=== PATIENT | male | born 1980 | race African-American/Black ===

== ENCOUNTER 2017-05-03 13:35 | Emergency (ER) | payer MEDICAID ==
[2017-05-03 15:25] LABS: CALCIUM 8.8 mg/dL (8.5-10.1); CARBON DIOXIDE 27.6 mmol/L (21-32); CHLORIDE SERUM 102 mmol/L (98-107); CREATININE SERUM 0.8 mg/dL (0.7-1.3); GFR1 > 60 mL/min; GLUCOSE SERUM 110 mg/dL (74-106); POTASSIUM SERUM 4.3 mmol/L (3.5-5.1); SODIUM SERUM 139 mmol/L (136-145)
[2017-05-03 15:28] LABS: BASOPHIL % 0.7 % (0-2); RED BLOOD CELLS 2.82 M/mm3 (4.52-5.90)
[2017-05-03 15:29] LABS: ALBUMIN 3.5 g/dL (3.4-5.0); ALKALINE PHOSPHATASE 116 U/L (46-116); ALT/SGPT 31 U/L (16-63); AST/SGOT 41 U/L (15-37); BILIRUBIN TOTAL 0.9 mg/dL (0.20-1.00); RED CELL DISTRIBUTION WIDTH 19.8 % (11.5-14.5); TOTAL PROTEIN, SERUM 7.6 g/dL (6.4-8.2)
[2017-05-03 15:40] LABS: PLATELET COUNT 517 x10^3mcL (130-400)
[2017-05-03 17:21] VITALS: BP 124/70
== END 2017-05-03 17:21 | disposition home or self-care (01) ==
LOC: ED 13:35
PROVIDERS: Emergency Medicine
DX: D57.219 Sickle-cell/Hb-C disease with crisis, unspecified (principal); R05 Cough; M79.1 Myalgia; Z88.8 Allergy status to other drugs, medicaments and biological substances
CPT/HCPCS: 36415; J1885; J3010